=== PATIENT | male | born 1975 | race Caucasian/White ===

== ENCOUNTER → 2022-10-03 14:41 | Outpatient (BNVA) | payer OTHER, SELFPAY | PROVIDERS: Visit Provider Nurse Practitioner Family | DX: R20.2 Paresthesia of skin (principal); R25.2 Cramp and spasm; E03.9 Hypothyroidism, unspecified; G43.909 Migraine, unspecified, not intractable, without status migrainosus; M54.2 Cervicalgia; M54.9 Dorsalgia, unspecified | CPT/HCPCS: 99202 ==

== ENCOUNTER 2022-10-16 07:54 | Outpatient (REF) | payer OTHER, SELFPAY ==
--- NOTE | 2022-10-16 07:57 | EEG_ITS ---
Waking background activity consists of a well-defined moderate voltage, 10 to 11 hertz posterior alpha frequency, intermixed anteriorly with low-voltage fast frequencies. Drowsiness is characterized with diffuse theta slowing. Photic stimulation is without activation. Hyperventilation produces no change. No sleep stages are identified. IMPRESSION: This awake and drowsy EEG is within normal limits. MD MAU Flowers/TIMOTHY / [id number]
== END 2022-10-16 07:55 | disposition home or self-care (01) ==
LOC: HO.NEURO 07:54
PROVIDERS: PCP Internal Medicine; Visit Provider Nurse Practitioner Family
DX: G43.909 Migraine, unspecified, not intractable, without status migrainosus (principal)
CPT/HCPCS: 95816

== ENCOUNTER → 2022-12-10 11:20 | Outpatient (BNVA) | payer OTHER, SELFPAY | PROVIDERS: PCP Internal Medicine; Visit Provider Nurse Practitioner Family | DX: G43.909 Migraine, unspecified, not intractable, without status migrainosus (principal); M54.2 Cervicalgia; M54.9 Dorsalgia, unspecified | CPT/HCPCS: 99212 ==

== ENCOUNTER → 2023-01-14 08:57 | Outpatient (BNVA) | payer OTHER, SELFPAY | PROVIDERS: PCP Internal Medicine; Visit Provider Anesthesiology | DX: M47.26 Other spondylosis with radiculopathy, lumbar region (principal); G89.4 Chronic pain syndrome; M51.36 Other intervertebral disc degeneration, lumbar region | CPT/HCPCS: 99202 ==

== ENCOUNTER → 2023-03-06 15:30 | Outpatient (BNVA) | payer OTHER, SELFPAY | PROVIDERS: PCP Internal Medicine; Visit Provider Anesthesiology | DX: G89.4 Chronic pain syndrome (principal); M47.26 Other spondylosis with radiculopathy, lumbar region; M51.36 Other intervertebral disc degeneration, lumbar region; M46.1 Sacroiliitis, not elsewhere classified; M53.3 Sacrococcygeal disorders, not elsewhere classified | CPT/HCPCS: 99212 ==

== ENCOUNTER 2023-05-28 06:00 | Outpatient (REF) | payer OTHER, SELFPAY ==
--- NOTE | ~2023-05-28 | FL_ITS ---
EXAMINATION: XR FLUOROSCOPY WITH IMAGES CLINICAL INFORMATION: Sacrococcygeal disorders, not elsewhere classified. COMPARISON: None available. TECHNIQUE: Fluoroscopy Supervised By: Dr. Nura Eckert. Fluoroscopy Time: 0.1 minute. Cumulative Dose: 0.943 mGy. DAP: 0.0163 Gycm2. Images: 1. FINDINGS: Image demonstrates needle placement and contrast injection of the left sacroiliac joint FL/FL guidance in treatment room IMPRESSION: Fluoroscopy guidance for pain management procedure
== END 2023-05-28 06:01 | disposition home or self-care (01) ==
LOC: CF 06:00
PROVIDERS: Visit Provider Anesthesiology
DX: M53.3 Sacrococcygeal disorders, not elsewhere classified (principal); M47.816 Spondylosis without myelopathy or radiculopathy, lumbar region; M46.1 Sacroiliitis, not elsewhere classified
CPT/HCPCS: 27096

== ENCOUNTER 2023-05-28 08:22 | Outpatient (AMB) | payer OTHER, SELFPAY ==
[2023-05-28 08:28] VITALS: BP 128/60; PULSE 42; RESP 16; O2SAT 98; BMI 22.0
--- NOTE | 2023-05-28 08:28 | A.OFFVIS_ITS ---
Intake Vital Signs 05/28/23 08:28 05/28/23 09:38 Height 6 ft 1 in 6 ft 1 in Weight 167 lb 167 lb BMI 22.0 22.0 BP 128/60 104/60 Blood Pressure Location Lt brachial Lt brachial Position Sitting Sitting Respiration 16 16 Pulse 42 L 94 Pulse Source Pulse Oximeter Pulse Oximeter Pulse Oximetry (%) 98 98 Oxygen Delivery Method Room Air Room Air Comment pre-op post-op Intake Visit Reasons: L DX SIJ INJ/LOCAL Allergies cyclobenzaprine [From Flexeril] Allergy (Intermediate, Verified 05/28/23 08:28) Palpitations PFSH Surgical History History of carpal tunnel release Hx laparoscopic cholecystectomy Family History Mother Stroke Diabetes Past heart attack Father Stomach cancer COPD (chronic obstructive pulmonary disease) Diabetes Hypertension Sister Fibromyalgia Acute arthritis Bipolar 1 disorder Brother Bipolar 1 disorder GERD (gastroesophageal reflux disease) Kidney stones Sister Epilepsy Social History (Updated 10/03/22 @ 15:12 by Shazia Del Real [facility]) Alcohol intake: never Patient Tobacco Use Status: Never used Tobacco Physical Exam Vital Signs: Last Vital Signs Pulse 94 05/28/23 09:38 Resp 16 05/28/23 09:38 BP 104/60 05/28/23 09:38 Pulse Ox 98 05/28/23 09:38 Oxygen Delivery Method Room Air 05/28/23 09:38 BMI result Body Mass Index 22.0 Assessment & Plan Assessment & Plan (1) Spondylosis of lumbar spine: Code(s): M47.816 - Spondylosis without myelopathy or radiculopathy, lumbar region (2) Arthropathy of facet joint: Code(s): M47.819 - Spondylosis without myelopathy or radiculopathy, site unspecified (3) Disc degeneration, lumbar: Code(s): M51.36 - Other intervertebral disc degeneration, lumbar region (4) Radiculopathy, lumbar region: Code(s): M54.16 - Radiculopathy, lumbar region (5) Chronic pain syndrome: Code(s): G89.4 - Chronic pain syndrome (6) Sacroiliitis: Code(s): M46.1 - Sacroiliitis, not elsewhere classified (7) Sacroiliac joint dysfunction: Code(s): M53.3 - Sacrococcygeal disorders, not elsewhere classified Plan: Left diagnostic sacroiliac joint injection Informed consent was explained thoroughly to the patient. All questions about benefits and risks for the procedure were answered. Patient came to the operating room and was positioned prone on the operating table with the pillow under the pelvis. Time out was performed delineating name and of the patient, allergies and the nature of the procedure. The lower back and buttocks of the patient were prepped with ChloraPrep prepped and draped with sterile utility towels. C-arm was brought over the operating field and sq picture of patient's pelvis was demonstrated on the screen. For the left joint tilting C-arm contralateral to the site of the joint the most posterior portion of the joints was superimposed with anterior silhouette of the joint. Skin was injected in the projection of the joint slightly medial to the location of the joint with 25 gauge 1/2 inch needle using local lidocaine 2% .After that 22 gauge 3 and 1/2 inch needle was driven to the right joint in tunnel vision fashion. When needle entered the joint capsule injection of the contrast was performed demonstrating intra-articular and minimally periarticular spread of the contrast. After that 4 cc. of ropivacaine 0.5% was injected into the joint. Upon completion of the injections the needle was removed Sterile dressing was applied. Upon completion of the injection patient was taken outside of the operating room to the recovery room where recovered uneventfully. Plan Unfortunately MRI of the lumbar spine is not available for me. It was done in 2014. Attention was attracted today to sacroiliac joint pathology presumable on the left. We agreed that I will schedule him for left sacroiliac joint injection. If this procedure will alleviate his pain we will discuss ways and means of treating sacroiliitis. However if it and will not be helpful I believe I should send him to repeat MRI of the lumbar spine to diagnose his pain more p recisely. Next appointment for the injection of left sacroiliac joint and after that short-term follow-up. Orders: Orders FL guidance in treatment room Today M46.1 - Sacroiliitis, not elsewhere classified, M53.3 - Sacrococcygeal disorders, not elsewhere classified Coding Level of Care Code Procedure Only Diagnoses Spondylosis of lumbar spine M47.816 Arthropathy of facet joint M47.819 Disc degeneration, lumbar M51.36 Radiculopathy, lumbar region M54.16 Chronic pain syndrome G89.4 Sacroiliitis M46.1 Sacroiliac joint dysfunction M53.3
[2023-05-28 09:38] VITALS: BP 104/60; PULSE 94; RESP 16; O2SAT 98; BMI 22.0
== END 2023-05-28 09:35 | disposition home or self-care (01) ==
LOC: HO.PMCPRC 08:22
PROVIDERS: PCP Internal Medicine; Visit Provider Anesthesiology
DX: M46.1 Sacroiliitis, not elsewhere classified (principal); M53.3 Sacrococcygeal disorders, not elsewhere classified
CPT/HCPCS: 27096

== ENCOUNTER 2023-05-30 09:42 | Outpatient (AMB) | payer OTHER, SELFPAY ==
--- NOTE | 2023-05-30 09:44 | MHC.OFFVIS ---
Intake Vital Signs 05/30/23 09:50 Height 6 ft 1 in Weight 164 lb 2 oz BMI 21.7 BP 126/86 Blood Pressure Location Lt brachial Position Standing Respiration 16 Pulse 58 Pulse Source Pulse Oximeter Pulse Oximetry (%) 98 Oxygen Delivery Method Room Air Intake Visit Reasons: L DX SIJ INJ 05/28/23 Intake Note: patient comes in for post op. Allergies cyclobenzaprine [From Flexeril] Allergy (Intermediate, Verified 05/30/23 09:51) Palpitations HPI HPI Comments History of Present Illness Details Juan is very pleasant 47 years old gentleman who is back in my office for the follow-up. He went for left diagnostic sacroiliac joint injection and he reported no pain improvement after the procedure. He actually reported pain aggravation after the procedure. He stated that now he feels pain going down both left and right lower extremities. At the same time he reported that he feels bilateral lower extremities getting weaker. He reports that he is unable to flex his hip when he sits on a chair he feels his left hip absolutely heavy. He admits that straight leg rising and lassegue signs are positive on the left. He also admits numbness in the projection of the lateral border of the left foot. All of this is suspicious from some radiculopathy on the left and possible involvement on the right. He had the MRI long time ago. I will schedule him for MRI of the lumbar spine. Unfortunately he does not remember where the MRI was done but he will be looking for the place that he would have had it and tried to obtain the disc for comparison of the prior MRI with new MRI in [facility]. injections he had in 2016 with [facility]. Those were transforaminal epidural steroid injections. They were basically similar injections with 1 injection addressing L4 and L5 nerve roots and the other injection addressing S1 nerve root he reported that S1 nerve root injection helped better than L4 and L5. However attention was attracted today to the fact that the patient has significant symptoms of sacroiliitis on the left. He has tenderness on palpation in the projection of the left sacroiliac joint. He has positive Michele test and positive Stinchfield test. He also has positive pelvic destruction test. I offered the patient to have diagnostic left sacroiliac joint injection. If this procedure will result in good pain relief I will offer him some treatment for the sacroiliitis on the left. If it will not be so I will send him for MRI of the lumbar spine, last MRI he had 7 years ago. Prior: Complains on the neck and back pain, however he insist on back pain the bothering him much more than the neck pain in would like to discuss back pain injection he received many years ago with [facility].? He reports and a in 2013 he had industrial accident during which he fell from the ladder.? He fractured his ribs and also had cervical spine fracture.? He also states that he received injury of the lumbar spine with some disc rupture during this fall.? He reports that the injection he received in [facility] was very helpful for pain control and he wants to repeat this injection here.? He reports his pain 04/15 today.he cannot sleep normally cannot do activities of daily living he can take care of himself but he cannot function normally.? He is working full-time.? [facility] Surgical History History of carpal tunnel release Hx laparoscopic cholecystectomy Family History Mother Stroke Diabetes Past heart attack Father Stomach cancer COPD (chronic obstructive pulmonary disease) Diabetes Hypertension Sister Fibromyalgia Acute arthritis Bipolar 1 disorder Brother Bipolar 1 disorder GERD (gastroesophageal reflux disease) Kidney stones Sister Epilepsy Social History (Updated 10/03/22 @ 15:12 by Shazia Del Real [facility]) Alcohol intake: never Patient Tobacco Use Status: Never used Tobacco Review of Systems Const All systems reviewed & are unremarkable except as noted in HPI and below ENT Reports Normal hearing present Neuro Reports Normal hearing present, Denies Abnormal speech present and Denies Sensory deficit (Neuro) Physical Exam Const General: no acute distress Nutritional Appearance: thin and underweight Orientation/consciousness: patient oriented x3 Eyes General: appearance normal, both eyes and all related structures Pupils: Equal, round and reactive pupils present EOM: EOMs intact bilaterally Neck Neck: Yes full ROM Chest Chest palpation & inspection: normal inspection of the chest Resp Effort & Inspection: normal respiratory effort, able to speak in complete sentences, normal respiratory pattern, no audible wheezes and no cough Cardio Jugular venous distension: no JVD GI Inspection: Yes normal to inspection Back/Spine/Pelvis Other: He is able to stand on bilateral tiptoes and bilateral heels with no difficulty. He was able to lift 1st toe on both feet in separation of the rest of the toes without difficulty. However attempt to flex his hip or extend his knee on the left results in significant weakness. The weakness is more on the left compared to the right. Now he admits numbness in the lateral surface of the left foot. SLR is positive on the left and equivocal on the right. Lassegue test is also positive on the left. Michele test is positive on the left Tenderness on palpation in paraspinal spinal region in the lumbar spine. Severe tenderness on palpation in projection of the left sacroiliac joints. Flexing forward and flexing backwards does aggravate his pain however flexing backwards seem to aggravate his pain more than flexing forward. He is wearing a elastic abdominal belt. He denies pelvic organ dysfunction. Neuro General: patient oriented x3 and gait normal Cranial nerves: Yes CN's II-XII intact bilaterally, Yes Equal, round and reactive pupils present, Yes Normal hearing present and Yes Ability to bilaterally elevate shoulders present Speech: No Abnormal speech present Gait exam (Neuro): Normal gait present Motor exam (neuro): 5/5 motor strength present throughout Sensory Exam: No Sensory deficit (Neuro) Extrem General: No pedal edema Psych Speech and movement: Normal speech and movement present Affect: normal affect Attitude: cooperative Thought process: Normal thought process present Thought content: Normal thought content present Insight: Good insight present (Psych) Judgement: Good judgement present (Psych) Assessment & Plan Assessment & Plan (1) Spondylosis of lumbar spine: Code(s): M47.816 - Spondylosis without myelopathy or radiculopathy, lumbar region (2) Arthropathy of facet joint: Code(s): M47.819 - Spondylosis without myelopathy or radiculopathy, site unspecified (3) Disc degeneration, lumbar: Code(s): M51.36 - Other intervertebral disc degeneration, lumbar region (4) Radiculopathy, lumbar region: Code(s): M54.16 - Radiculopathy, lumbar region (5) Chronic pain syndrome: Code(s): G89.4 - Chronic pain syndrome (6) Sacroiliitis: Code(s): M46.1 - Sacroiliitis, not elsewhere classified (7) Sacroiliac joint dysfunction: Code(s): M53.3 - Sacrococcygeal disorders, not elsewhere classified Plan Sacroiliac joint injection resulted only in pain aggravation. Now he complains on pain in bilateral lower extremities radiating from the lumbar spine and he complains to me on weakness in the left lower extremity and numbness on the lateral side of the left foot. Unfortunately MRI of the lumbar spine is not available for me. It was done in 2014. Attention was attracted today to symptoms of the radiculopathy of the lumbar spine. I will send him to repeat MRI of the lumbar spine. Orders: Orders MR lumbar spine wo con Today G89.4 - Chronic pain syndrome, M47.816 - Spondylosis without myelopathy or radiculopathy, lumbar region, M47.819 - Spondylosis without myelopathy or radiculopathy, site unspecified, M51.36 - Other intervertebral disc degeneration, lumbar region, M54.16 - Radiculopathy, lumbar region Coding Level of Care Code Est Pt Level 4 (45766) Diagnoses Spondylosis of lumbar spine M47.816 Arthropathy of facet joint M47.819 Disc degeneration, lumbar M51.36 Radiculopathy, lumbar region M54.16 Chronic pain syndrome G89.4 Sacroiliitis M46.1 Sacroiliac joint dysfunction M53.3
[2023-05-30 09:50] VITALS: BP 126/86; PULSE 58; RESP 16; O2SAT 98; BMI 21.7
== END 2023-05-30 10:04 | disposition home or self-care (01) ==
PROVIDERS: PCP Internal Medicine; Visit Provider Anesthesiology
DX: M47.816 Spondylosis without myelopathy or radiculopathy, lumbar region (principal); M47.819 Spondylosis without myelopathy or radiculopathy, site unspecified; M51.36 Other intervertebral disc degeneration, lumbar region; M54.16 Radiculopathy, lumbar region; G89.4 Chronic pain syndrome; M46.1 Sacroiliitis, not elsewhere classified; M53.3 Sacrococcygeal disorders, not elsewhere classified
CPT/HCPCS: 99214

== ENCOUNTER → 2023-05-30 09:42 | Outpatient (BNVA) | payer OTHER, SELFPAY | PROVIDERS: PCP Internal Medicine; Visit Provider Anesthesiology | DX: G89.4 Chronic pain syndrome (principal); M47.26 Other spondylosis with radiculopathy, lumbar region; M51.36 Other intervertebral disc degeneration, lumbar region; M46.1 Sacroiliitis, not elsewhere classified; M53.3 Sacrococcygeal disorders, not elsewhere classified | CPT/HCPCS: 99212 ==

== ENCOUNTER 2023-07-09 19:33 | Outpatient (REF) | payer OTHER, SELFPAY ==
--- NOTE | ~2023-07-09 | MR_ITS ---
EXAMINATION: MR LUMBAR SPINE WITHOUT CONTRAST CLINICAL INFORMATION: Chronic pain syndrome COMPARISON: Outside MRI of the lumbar spine 01/13/2016 TECHNIQUE: MRI of the lumbar spine was obtained using routine sequences without contrast. FINDINGS: Lumbar straightening. No significant spondylolisthesis. No suspicious marrow signal or focal osseous lesion. No significant marrow edema. The vertebral body heights are maintained. Disc desiccation and height loss at T11-T12 and L5-S1 and mild desiccation at L4-L5. The conus medullaris terminates at the level of L1-L2. The distal spinal cord is normal in appearance. The cauda equina nerve roots appear normal. No significant abnormalities of the paraspinal musculature. Limited evaluation of the intra-abdominal structures without significant abnormalities. The abdominal aorta is of normal contour and caliber. SPINAL LEVELS: L1-L2: No significant spinal canal or neuroforaminal narrowing. L2-L3: No significant spinal canal or neuroforaminal narrowing. L3-L4: No significant spinal canal or neuroforaminal narrowing. L4-L5: Shallow left eccentric disc bulge with left posterior annular fissure, mild facet arthropathy, ligamentum flavum thickening. No significant central spinal canal stenosis. Mild subarticular zone narrowing and mild left neural foraminal narrowing L5-S1: Increased size of a large central disc protrusion which results in worsening left greater than right subarticular zone narrowing and likely mass effect on the traversing left S1 nerve root. Mild facet arthropathy with small joint effusions and ligamentum flavum thickening. New mild central spinal canal stenosis. Stable mild bilateral neural foraminal narrowing. MR/MR lumbar spine wo con IMPRESSION: 1. At L5-S1, increased size of a large central disc protrusion which results in worsening left greater than right subarticular zone narrowing and likely mass effect on the traversing left S1 nerve root. There is also new mild central spinal canal stenosis at this level. 2. At L4-L5, there is mild subarticular zone narrowing and mild left neural foraminal narrowing.
== END 2023-07-09 19:34 | disposition home or self-care (01) ==
LOC: HO.MRI 19:33
PROVIDERS: PCP Internal Medicine; Visit Provider Anesthesiology
DX: M54.16 Radiculopathy, lumbar region (principal); M51.36 Other intervertebral disc degeneration, lumbar region; M47.816 Spondylosis without myelopathy or radiculopathy, lumbar region; G89.4 Chronic pain syndrome
CPT/HCPCS: 72148; 72197

== ENCOUNTER 2023-07-30 06:07 | Outpatient (REF) | payer OTHER, SELFPAY ==
--- NOTE | ~2023-07-30 | FL_ITS ---
EXAMINATION: XR FLUOROSCOPY WITH IMAGES CLINICAL INFORMATION: Radiculopathy, lumbar region. Lumbar injection. COMPARISON: None available. TECHNIQUE: Fluoroscopy Supervised By: Dr. Nura Eckert. Fluoroscopy Time: 0.5 minutes. Cumulative Dose: 5.45 mGy. DAP: 0.0880 Gycm2. Images: 2. FINDINGS: Images demonstrate needle placement and contrast injection adjacent to the bilateral lateral L5 vertebrae FL/FL guidance in treatment room IMPRESSION: Fluoroscopy guidance for pain management procedure
== END 2023-07-30 06:08 | disposition home or self-care (01) ==
LOC: CF 06:07
PROVIDERS: Visit Provider Anesthesiology
DX: M47.26 Other spondylosis with radiculopathy, lumbar region (principal); M51.36 Other intervertebral disc degeneration, lumbar region; M46.1 Sacroiliitis, not elsewhere classified; M53.3 Sacrococcygeal disorders, not elsewhere classified; G89.4 Chronic pain syndrome
CPT/HCPCS: 64483; J3301; Q9967

== ENCOUNTER 2023-07-30 09:16 | Outpatient (AMB) | payer OTHER, SELFPAY ==
[2023-07-30 09:20] VITALS: BP 136/86; PULSE 70; RESP 16; O2SAT 98; BMI 21.6
--- NOTE | 2023-07-30 09:20 | A.OFFVIS_ITS ---
Intake Vital Signs 07/30/23 09:20 07/30/23 11:04 Height 6 ft 1 in 6 ft 1 in Weight 164 lb 164 lb BMI 21.6 21.6 BP 136/86 138/84 Blood Pressure Location Lt brachial Lt brachial Position Right Lateral Sitting Respiration 16 18 Pulse 70 78 Pulse Source Pulse Oximeter Pulse Oximeter Pulse Oximetry (%) 98 96 Oxygen Delivery Method Room Air Room Air Comment Pre-Op Post-Op Intake Visit Reasons: BILATERAL L5, S1 TFESI Allergies cyclobenzaprine [From Flexeril] Allergy (Intermediate, Verified 05/30/23 09:51) Palpitations PFSH Surgical History History of carpal tunnel release Hx laparoscopic cholecystectomy Family History Mother Stroke Diabetes Past heart attack Father Stomach cancer COPD (chronic obstructive pulmonary disease) Diabetes Hypertension Sister Fibromyalgia Acute arthritis Bipolar 1 disorder Brother Bipolar 1 disorder GERD (gastroesophageal reflux disease) Kidney stones Sister Epilepsy Social History (Updated 10/03/22 @ 15:12 by Shazia Del Real [facility]) Alcohol intake: never Patient Tobacco Use Status: Never used Tobacco Physical Exam Vital Signs: Last Vital Signs Pulse 78 07/30/23 11:04 Resp 18 07/30/23 11:04 BP 138/84 07/30/23 11:04 Pulse Ox 96 07/30/23 11:04 Oxygen Delivery Method Room Air 07/30/23 11:04 BMI result Body Mass Index 21.6 Assessment & Plan Assessment & Plan (1) Spondylosis of lumbar spine: Code(s): M47.816 - Spondylosis without myelopathy or radiculopathy, lumbar region (2) Arthropathy of facet joint: Code(s): M47.819 - Spondylosis without myelopathy or radiculopathy, site unspecified (3) Disc degeneration, lumbar: Code(s): M51.36 - Other intervertebral disc degeneration, lumbar region (4) Radiculopathy, lumbar region: Code(s): M54.16 - Radiculopathy, lumbar region Plan: Transforaminal epidural steroid injection L5-S1 bilateral . THE PATIENT CAME TO THE OPERATING ROOM AFTER OBTAINING INFORMED CONSENT. THE RISKS OF THE PROCEDURE WERE DELINEATED THE RISK OF BLEEDING INFECTION PERIPHERAL NERVE DAMAGE EPIDURAL HEMATOMA EPIDURAL ABSCESS AND OTHER UNSPECIFIED RISKS. THE PATIENT WAS POSITIONED PRONE ON THE OPERATING TABLE . TIME-OUT WAS OBTAINED DELINEATING CORRECT SIDE AND SITE OF THE PROCEDURE, PATIENT NAME AND DATE OF , NEED OF THE ANTIBIOTIC, RISK OF FIRE. The PATIENT PARTICIPATED IN THE TIME OUT PROCEDURE. LUMBAR AREA OF THE PATIENT WAS PREPPED WITH CHLORAPREP AND DRAPED WITH STERILE DRAPES, C-ARM WAS BROUGHT OVER THE OPERATING FIELD AND SQ PICTURE OF L5 VERTEBRA WAS DELINEATED ON THE SCREEN. C-ARM WAS TILTED 20? CEPHALAD AND 25 DEGREES TO THE RIGHT TO DEMONSTRATE THE MOST PROMINENT IMAGE OF THE SAP on THE RIGHT. THE LATERAL BORDER OF THE SAP PROJECTION TO THE SKIN WAS CHOSEN A STARTING POINT OF THE INJECTION. 22 GAUGE 5 IN SPINAL NEEDLE WAS INSERTED THROUGH THE SKIN AND STARTED TO ADVANCE TO THE FORAMINA IN ANTERIOR POSTERIOR, OBLIQUE AND LATERAL VIEWS IN TUNNEL VISION FASHION. WHEN ON LATERAL VIEW THE NEEDLE ENTERED THE MOST POSTERIOR AND INFERIOR PORTION OF THE FORAMINA INJECTION OF THE CONTRAST PERFORMED DELINEATING ANTERIOR EPIDURAL SPREAD OF THE CONTRAST. AFTER THAT TREATMENT SOLUTION CONTAINING 3 ML OF PRESERVATIVE-FREE LIDOCAINE 1% MIXED WITH KENALOG 40 MG WAS INJECTED INTO THE NEEDLE. UPON COMPLETION OF THE INJECTION THE NEEDLE WAS REMOVED AND STERILE DRESSING WAS APPLIED. THERE INJECTION WAS REPEATED AT THE LEVELL5-S1 ON THE LEFT IN THE SAME VERY FASHION ABOVE. PATIENT TOLERATED PROCEDURE WELL STAKEN OUTSIDE OF THE OPERATING ROOM TO PACU WHERE HE RECOVERED UNEVENTFULLY. HE WENT HOME WITHOUT IMMEDIATE COMPLICATIONS. (5) Chronic pain syndrome: Code(s): G89.4 - Chronic pain syndrome (6) Sacroiliitis: Code(s): M46.1 - Sacroiliitis, not elsewhere classified (7) Sacroiliac joint dysfunction: Code(s): M53.3 - Sacrococcygeal disorders, not elsewhere classified Orders: Orders FL guidance in treatment room 07/30/23 M54.16 - Radiculopathy, lumbar region Coding Level of Care Code Procedure Only Diagnoses Spondylosis of lumbar spine M47.816 Arthropathy of facet joint M47.819 Disc degeneration, lumbar M51.36 Radiculopathy, lumbar region M54.16 Chronic pain syndrome G89.4 Sacroiliitis M46.1 Sacroiliac joint dysfunction M53.3
[2023-07-30 11:04] VITALS: BP 138/84; PULSE 78; RESP 18; O2SAT 96; BMI 21.6
== END 2023-07-30 11:26 | disposition home or self-care (01) ==
LOC: HO.PMCPRC 09:16
PROVIDERS: PCP Internal Medicine; Visit Provider Anesthesiology
DX: M47.26 Other spondylosis with radiculopathy, lumbar region (principal); M51.36 Other intervertebral disc degeneration, lumbar region; G89.4 Chronic pain syndrome; M46.1 Sacroiliitis, not elsewhere classified; M53.3 Sacrococcygeal disorders, not elsewhere classified
CPT/HCPCS: 64483

== ENCOUNTER 2024-01-15 12:52 | Outpatient (AMB) | payer OTHER, SELFPAY ==
--- NOTE | 2024-01-15 12:59 | MHC.OFFVIS ---
Intake Intake Visit Reasons: lumbar radiculopathy Intake Note: MRI done [facility] 07/09/23 Chart Writer Required: No Allergies cyclobenzaprine [From Flexeril] Allergy (Intermediate, Verified 05/30/23 09:51) Palpitations PFSH Surgical History History of carpal tunnel release Hx laparoscopic cholecystectomy Family History Mother Stroke Diabetes Past heart attack Father Stomach cancer COPD (chronic obstructive pulmonary disease) Diabetes Hypertension Sister Fibromyalgia Acute arthritis Bipolar 1 disorder Brother Bipolar 1 disorder GERD (gastroesophageal reflux disease) Kidney stones Sister Epilepsy Social History (Updated 10/03/22 @ 15:12 by Shazia Del Real [facility]) Alcohol intake: never Patient Tobacco Use Status: Never used Tobacco Assessment & Plan Assessment & Plan (1) Radiculopathy, lumbar region: Code(s): M54.16 - Radiculopathy, lumbar region Plan Dear Dr. Eckert, Thank you for referring Juan to our office today. He is a pleasant 48-year-old male comes in today with a chief complaint of low back pain with severe shooting pain down his left lower extremity. He reports associated symptoms of right-sided thigh numbness and burning. When describing his radiation of pain he runs his hands over the anterior and posterior aspects of his left thigh, over his posterior gastrocnemius, and down to the bottom of his foot on the left. He states this pain has been worsening over the course of the last few weeks, but originated some time over the course of the last year. He is unable to identify an exact inciting incident, however states he does a lot of ?heavy lifting? while at work. Of note, he has a past medical history of ?multiple neck fractures and rib fractures? after falling off a ladder while working for [employer] in 2017. He has tried cortisone injections with our colleagues in pain management, however feels they are not resolving the issue. He is currently taking ibuprofen and lidocaine patches to help mitigate his pain. He has never tried physical therapy. PMH: Gallbladder removal 2004. Nephrolithiasis. Social hx: Patient does not smoke, reports no substance use. Medications: Lidocaine patches, ibuprofen, riboflavin, omeprazole, magnesium, aspirin. Allergies: Flexeril. Physical exam: The patient has 4/5 strength with knee extension dorsiflexion and plantar flexion on the left. The rest of his strength is 5/5 intact. His reflexes are absent in his bilateral patella, 1+ in his bilateral Achilles, and 2+ elsewhere. His sensation is somewhat diminished over his right anterior thigh. The rest of his sensation is grossly intact. He does ambulate with an antalgic gait favoring his right. (-) Roberto's, (-) clonus, (+) bilateral straight leg raise worse on the left. Imaging review: MRI of the lumbar spine completed here at [facility] shows a moderate-sized disc bulge at L5-S1 causing moderate central canal and right-sided foraminal stenosis, alongside severe left-sided foraminal stenosis. Impression: Juan is a pleasant 48-year-old male who comes in today with a chief complaint of low back pain with radiation into his left lower extremity. He reports it has been worsening over the course of the last few weeks but the initial injury allegedly happened sometime within the last year. Along with the worsening pain in his left leg has come right-sided burning and numbness in the anterior thigh. His symptoms are classic for an acute disc herniation which has for some reason either become exacerbated or worsened. Unfortunately, Juan states that he has not willing to consider surgery right now as he has a previous experience having his gallbladder removed in 2004 which was very traumatizing for him. He would like to continue pursuing conservative measures. He has not yet tried physical therapy, therefore I will send him for a round of physical therapy in the hopes this will help mitigate his symptoms. He was encouraged to call the office and schedule follow-up appointment if he feels as though his symptoms worsens or he reconsiders a surgical intervention for this issue. Thank you for allowing us to care for your patient. The total time spent with this visit with this patient was 45 minutes reviewing history, physical exam, MRI imaging review, and implementation of treatment plan or further diagnostic testing Navi Benito MD,PhD [facility] Orders: Orders PT Evaluation and Treatment Today M54.16 - Radiculopathy, lumbar region Coding Level of Care Code New Pt Level 4 (14655) Diagnoses Radiculopathy, lumbar region M54.16
== END 2024-01-15 13:26 | disposition home or self-care (01) ==
PROVIDERS: PCP Internal Medicine; Referring Provider Anesthesiology; Visit Provider Physician Assistant
DX: M54.16 Radiculopathy, lumbar region (principal)
CPT/HCPCS: 99204

== ENCOUNTER → 2024-01-15 12:52 | Outpatient (BNVA) | payer OTHER, SELFPAY | PROVIDERS: PCP Internal Medicine; Visit Provider Physician Assistant | DX: M54.16 Radiculopathy, lumbar region (principal) | CPT/HCPCS: 99202 ==

== ENCOUNTER 2024-01-29 13:46 | Outpatient (AMB) | payer OTHER, SELFPAY ==
--- NOTE | 2024-01-29 14:01 | A.OFFVIS_ITS ---
Vital Signs 01/29/24 14:06 Height 6 ft 1 in Weight 157 lb 2 oz BMI 20.7 BP 126/86 Blood Pressure Location Lt brachial Position Sitting Respiration 16 Pulse 67 Pulse Source Pulse Oximeter Pulse Oximetry (%) 97 Oxygen Delivery Method Room Air Intake Visit Reasons: INJECTION DISCUSSION Intake Note: Patient comes in to discuss injection options. Reports pain 07/16. Allergies cyclobenzaprine [From Flexeril] Allergy (Intermediate, Verified 01/29/24 14:06) Palpitations HPI Comments Details: Juan is very pleasant 48 years old gentleman who is in my office to 6 months of absence. He is suffering from degenerative disc disease with significant disc protrusion at L5-S1 level. The disc compresses bilaterally both of his S1 nerve roots. His pains complain is mostly on the left however he has severe problems on the right as well. [facility] and he was offered minimally invasive surgery however he has very traumatic experience after cholecystectomy and he refused to go for the surgery. He was aware under anesthesia during cholecystectomy. I offered him treatment of his condition with bilateral transforaminal epidural steroid injection L5-S1 like I did in July of 2023. He agreed to go for the procedure. I also told him that it will be a good idea to go for physical therapy before and after the injection and also continue home exercise program at least 3 times a day for at least 15-20 minutes at a time after he completes his course of physical therapy. There is a small possibility that this protrusion will get smaller and his pain will get better. [facility] Surgical History History of carpal tunnel release Hx laparoscopic cholecystectomy Family History Mother Stroke Diabetes Past heart attack Father Stomach cancer COPD (chronic obstructive pulmonary disease) Diabetes Hypertension Sister Fibromyalgia Acute arthritis Bipolar 1 disorder Brother Bipolar 1 disorder GERD (gastroesophageal reflux disease) Kidney stones Sister Epilepsy Social History (Updated 10/03/22 @ 15:12 by Shazia Del Real [facility]) Alcohol intake: never Patient Tobacco Use Status: Never used Tobacco Review of Systems Const All systems reviewed & are unremarkable except as noted in HPI and below ENT Reports Normal hearing present Neuro Reports Normal hearing present, Denies Abnormal speech present and Denies Sensory deficit (Neuro) Physical Exam Const General: no acute distress Nutritional Appearance: thin and underweight Orientation/consciousness: patient oriented x3 Eyes General: appearance normal, both eyes and all related structures Pupils: Equal, round and reactive pupils present EOM: EOMs intact bilaterally Neck Neck: Yes full ROM Chest Chest palpation & inspection: normal inspection of the chest Resp Effort & Inspection: normal respiratory effort, able to speak in complete sentences, normal respiratory pattern, no audible wheezes and no cough Cardio Jugular venous distension: no JVD GI Inspection: Yes normal to inspection Back/Spine/Pelvis Other: He is able to stand on bilateral tiptoes and bilateral heels with no difficulty. He was able to lift 1st toe on both feet in separation of the rest of the toes without difficulty. However attempt to flex his hip or extend his knee on the left results in significant weakness. The weakness is more on the left compared to the right. Now he admits numbness in the lateral surface of the left foot. SLR is positive on the left and equivocal on the right. Lassegue test is also positive on the left. Michele test is positive on the left Tenderness on palpation in paraspinal spinal region in the lumbar spine. Severe tenderness on palpation in projection of the left sacroiliac joints. Flexing forward and flexing backwards does aggravate his pain however flexing backwards seem to aggravate his pain more than flexing forward. He is wearing a elastic abdominal belt. He denies pelvic organ dysfunction. Neuro General: patient oriented x3 and gait normal Cranial nerves: Yes CN's II-XII intact bilaterally, Yes Equal, round and reactive pupils present, Yes Normal hearing present and Yes Ability to bilaterally elevate shoulders present Speech: No Abnormal speech present Gait exam (Neuro): Normal gait present Motor exam (neuro): 5/5 motor strength present throughout Sensory Exam: No Sensory deficit (Neuro) Extrem General: No pedal edema Psych Speech and movement: Normal speech and movement present Affect: normal affect Attitude: cooperative Thought process: Normal thought process present Thought content: Normal thought content present Insight: Good insight present (Psych) Judgement: Good judgement present (Psych) Assessment & Plan Assessment & Plan (1) Spondylosis of lumbar spine: Code(s): M47.816 - Spondylosis without myelopathy or radiculopathy, lumbar region Category: Medical (2) Arthropathy of facet joint: Code(s): M47.819 - Spondylosis without myelopathy or radiculopathy, site unspecified Category: Medical (3) Disc degeneration, lumbar: Code(s): M51.36 - Other intervertebral disc degeneration, lumbar region Category: Medical (4) Radiculopathy, lumbar region: Code(s): M54.16 - Radiculopathy, lumbar region Category: Medical (5) Chronic pain syndrome: Code(s): G89.4 - Chronic pain syndrome Category: Medical Plan Sacroiliac joint injection resulted only in pain aggravation. Good results of transforaminal L5-S1 epidural steroid injection. Bilateral. I will schedule him for the procedure. He was offered minimally invasive surgery with Dr. Benito however he refused. He had traumatic experience after cholecystectomy he was found aware under anesthesia. Physical therapy will be scheduled for him as well. See discussion as above. Orders: Orders PT Evaluation and Treatment Today M47.816 - Spondylosis without myelopathy or radiculopathy, lumbar region, M51.36 - Other intervertebral disc degeneration, lumbar region, M54.16 - Radiculopathy, lumbar region Patient Instructions: I here by testify that I spent 30 minutes in conversation with this patient as well as evaluating his prior images and records, planning his care and organizing this note. Coding Level of Care Code Est Pt Level 4 (46816) Diagnoses Spondylosis of lumbar spine M47.816 Arthropathy of facet joint M47.819 Disc degeneration, lumbar M51.36 Radiculopathy, lumbar region M54.16 Chronic pain syndrome G89.4
[2024-01-29 14:06] VITALS: BP 126/86; PULSE 67; RESP 16; O2SAT 97; BMI 20.7
== END 2024-01-29 14:15 | disposition home or self-care (01) ==
PROVIDERS: PCP Internal Medicine; Visit Provider Anesthesiology
DX: M47.816 Spondylosis without myelopathy or radiculopathy, lumbar region (principal); M47.819 Spondylosis without myelopathy or radiculopathy, site unspecified; M51.36 Other intervertebral disc degeneration, lumbar region; M54.16 Radiculopathy, lumbar region; G89.4 Chronic pain syndrome
CPT/HCPCS: 99214

== ENCOUNTER → 2024-01-29 13:46 | Outpatient (BNVA) | payer OTHER, SELFPAY | PROVIDERS: PCP Internal Medicine; Visit Provider Anesthesiology | DX: M47.816 Spondylosis without myelopathy or radiculopathy, lumbar region (principal); M47.819 Spondylosis without myelopathy or radiculopathy, site unspecified; M51.36 Other intervertebral disc degeneration, lumbar region; M54.16 Radiculopathy, lumbar region; G89.4 Chronic pain syndrome | CPT/HCPCS: 99212 ==

== ENCOUNTER 2024-02-19 13:43 | Outpatient (RCR) | payer OTHER, SELFPAY ==
--- NOTE | 2024-02-24 09:50 | MHC.PT.EP ---
[facility] [place] Office [place] Office [place] Office [address] Elizabeth Bourgeois [address] [phone] F: [phone] F: [phone] F: [phone] F: [phone] Physical Therapy Plan of Care Date of Evaluation: 02/19/24 Date of Surgery: n/a Diagnosis: Radiculopathy, lumbar region Other intervertebral disc degeneration, lumbar region Spondylosis without myelopathy or radiculopathy, lumbar region Assessment: Pt is a pleasant and motivated 48yo M who presents to PT with chronic low back pain radiating into LE's since 2013. He presents to PT with current impairments in pain, decreased lumbar ROM, posterior chain tightness, decreased core stabilization, decreased strength, decreased balance/proprioception, and impaired gait. He is limited functionally by prolonged sitting, bending, prolonged standing, walking, and sleeping. He is a good candidate for skilled PT in order to address current impairments to maximize function and management of symptoms. He is recommended to be seen 2x/week for 4 weeks and will be reassessed at that time Frequency and Duration: The patient will be seen 2x/week for 4 weeks Short Term Goals: Pt will be I with HEP to promote self management of symptoms Pt will have centralization of symptoms [employer] Goals: Pt will improve lumbar ROM by 25% all planes to facilitate return to functional activities Pt will demonstrate ability to squat and pickle cutter object from the floor with proper mechanics and minimal to no compensation of low back Pt will tolerate ambulation > 20 min with pain < 4/10 on multidirectional path Treatment Plan: Modalities to reduce pain, spasms and effusion. Manual therapy to restore motion and function. Therapeutic exercise to improve strength and flexibility. Neuromuscular re-education for posture and balance. Therapeutic activities to return to functional activities of daily living. Electronically signed by: Deepthi Solorio, PT, DPT Please sign and return to therapist. Thank you for your referral.
--- NOTE | 2024-03-17 14:07 | MHC.PT.DC ---
[facility] [place] Office [place] Office [place] Office [address] Elizabeth Bourgeois [address] [phone] F: [phone] F: [phone] F: [phone] F: [phone] Physical Therapy Discharge Report Diagnosis: Radiculopathy, lumbar region Other intervertebral disc degeneration, lumbar region Spondylosis without myelopathy or radiculopathy, lumbar region Date of Surgery: n/a Date of Evaluation: 02/19/24 Date of Discharge: 03/17/24 Treatments to Date: 1 Cancellations to Date: 4 No Shows to Date: 4 Discharge Status: Visit Non-compliance Discharge Summary: Pt attended initial PT evaluation. He has had multiple no shows and cancellations since SOC. He is being D/C from skilled PT per [facility] attendance policy and visit non-compliance. Pt current level of function unknown at this time Electronically signed by: Deepthi Solorio, PT, DPT Please sign and return to therapist. Thank you for your referral.
== END 2024-03-17 14:07 | disposition home or self-care (01) ==
LOC: HO.PT 13:43
PROVIDERS: PCP Physician Assistant; Visit Provider Anesthesiology
DX: M54.16 Radiculopathy, lumbar region (principal); M51.36 Other intervertebral disc degeneration, lumbar region; M47.816 Spondylosis without myelopathy or radiculopathy, lumbar region
CPT/HCPCS: 97162

== ENCOUNTER 2024-03-24 06:07 | Outpatient (REF) | payer OTHER, SELFPAY | END 2024-03-24 06:08 | disposition home or self-care (01) | LOC: CF 06:07 | PROVIDERS: Visit Provider Anesthesiology | DX: M47.816 Spondylosis without myelopathy or radiculopathy, lumbar region (principal); M47.819 Spondylosis without myelopathy or radiculopathy, site unspecified; M51.36 Other intervertebral disc degeneration, lumbar region; M54.16 Radiculopathy, lumbar region; G89.4 Chronic pain syndrome; R11.0 Nausea; Z53.09 Procedure and treatment not carried out because of other contraindication | CPT/HCPCS: 99212; J3301; Q9967 ==

== ENCOUNTER 2024-03-24 09:39 | Outpatient (AMB) | payer OTHER, SELFPAY ==
--- NOTE | 2024-03-24 09:48 | MHC.OFFVIS ---
Vital Signs 03/24/24 10:05 03/24/24 10:24 Height 6 ft 1 in Weight 157 lb 2 oz BMI 20.7 BP 98/68 102/68 Blood Pressure Location Lt brachial Lt brachial Position Sitting Sitting Respiration 16 16 Pulse 63 52 Pulse Source Pulse Oximeter Pulse Oximeter Pulse Oximetry (%) 96 98 Oxygen Delivery Method Room Air Room Air Comment pre-op post-op Intake Visit Reasons: BILATERAL L5, S1 TFESI Allergies cyclobenzaprine [From Flexeril] Allergy (Intermediate, Verified 03/24/24 10:07) Palpitations PFSH Surgical History History of carpal tunnel release Hx laparoscopic cholecystectomy Family History Mother Stroke Diabetes Past heart attack Father Stomach cancer COPD (chronic obstructive pulmonary disease) Diabetes Hypertension Sister Fibromyalgia Acute arthritis Bipolar 1 disorder Brother Bipolar 1 disorder GERD (gastroesophageal reflux disease) Kidney stones Sister Epilepsy Social History (Updated 10/03/22 @ 15:12 by Shazia Del Real [facility]) Alcohol intake: never Patient Tobacco Use Status: Never used Tobacco Physical Exam Vital Signs: Last Vital Signs Pulse 52 03/24/24 10:24 Resp 16 03/24/24 10:24 BP 102/68 03/24/24 10:24 Pulse Ox 98 03/24/24 10:24 Oxygen Delivery Method Room Air 03/24/24 10:24 BMI result Body Mass Index 20.7 Assessment & Plan Assessment & Plan (1) Spondylosis of lumbar spine: Code(s): M47.816 - Spondylosis without myelopathy or radiculopathy, lumbar region Category: Medical (2) Arthropathy of facet joint: Code(s): M47.819 - Spondylosis without myelopathy or radiculopathy, site unspecified Category: Medical Plan: Attempt at diagnostic medial branch block L3,L4 dorsal ramus L5 bilateral.? ? ?Informed consent was explained to the patient. All questions were explained and? answered.? The patient was taken inside the operating room where she was positioned prone on the operating table. Time-out was performed delineating correct site, side, the nature of the procedure, patient's allergy, . All operating room staff was participating in OR time-out procedure. ? ? The lower back was prepped with ChloraPrep and draped with sterile towels.? At this moment patient reported that he is being nauseous and will be not able to tolerate the procedure. He requested us to schedule his procedure. The patient was taking from the operating table to the recovery room, his vital signs were checked and patient was sent home. (3) Disc degeneration, lumbar: Code(s): M51.36 - Other intervertebral disc degeneration, lumbar region Category: Medical (4) Radiculopathy, lumbar region: Code(s): M54.16 - Radiculopathy, lumbar region Category: Medical (5) Chronic pain syndrome: Code(s): G89.4 - Chronic pain syndrome Category: Medical Plan Sacroiliac joint injection resulted only in pain aggravation. Good results of transforaminal L5-S1 epidural steroid injection. Bilateral. I will schedule him for the procedure. He was offered minimally invasive surgery with Dr. Benito however he refused. He had traumatic experience after cholecystectomy he was found aware under anesthesia. Physical therapy will be scheduled for him as well. See discussion as above. Orders: Orders FL guidance in treatment room Today M54.16 - Radiculopathy, lumbar region Coding Level of Care Code Procedure Only Diagnoses Spondylosis of lumbar spine M47.816 Arthropathy of facet joint M47.819 Disc degeneration, lumbar M51.36 Radiculopathy, lumbar region M54.16 Chronic pain syndrome G89.4
[2024-03-24 10:05] VITALS: BP 98/68; PULSE 63; RESP 16; O2SAT 96; BMI 20.7
[2024-03-24 10:24] VITALS: BP 102/68; PULSE 52; RESP 16; O2SAT 98
== END 2024-03-24 09:58 | disposition home or self-care (01) ==
LOC: HO.PMCPRC 09:39
PROVIDERS: PCP Physician Assistant; Visit Provider Anesthesiology
DX: M47.816 Spondylosis without myelopathy or radiculopathy, lumbar region (principal); M47.819 Spondylosis without myelopathy or radiculopathy, site unspecified; M51.36 Other intervertebral disc degeneration, lumbar region; M54.16 Radiculopathy, lumbar region; G89.4 Chronic pain syndrome
CPT/HCPCS: 99213

== ENCOUNTER → 2024-04-23 14:16 | Outpatient (BNVA) | payer OTHER, SELFPAY | PROVIDERS: PCP Physician Assistant; Visit Provider Anesthesiology ==

== ENCOUNTER 2025-02-15 11:22 | Outpatient (AMB) | payer OTHER, SELFPAY ==
--- NOTE | 2025-02-15 11:31 | MHC.OFFVIS ---
Vital Signs 02/15/25 11:32 Height 6 ft 1 in Weight 154 lb BMI 20.3 BP 124/78 Blood Pressure Location Lt brachial Position Sitting Pulse 52 Pulse Source Palpation Pulse Oximetry (%) 99 Oxygen Delivery Method Room Air Intake Visit Reasons: PROCEDURE DISCUSSION Home Care Giver Required: No Allergies cyclobenzaprine [From Flexeril] Allergy (Intermediate, Verified 02/15/25 11:33) Palpitations Medication List - Last Reconciled 02/15/25 by Rosa De León, BUSINESS CHANGE MANAGER aspirin 81 mg PO DAILY gabapentin 300 mg PO TID 30 days ibuprofen 800 mg PO Q8H PRN magnesium oxide 400 mg PO BEDTIME 30 days omeprazole 40 mg PO QAM riboflavin (vitamin B2) 400 mg PO DAILY 30 days HPI Comments Details: Juan is very pleasant 48 years old gentleman who is in my office to 6 months of absence. He is suffering from degenerative disc disease with significant disc protrusion at L5-S1 level. The disc compresses bilaterally both of his S1 nerve roots. His pains complain is mostly on the left however he has severe problems on the right as well. [facility] and he [facility] surgery however he has very traumatic experience after cholecystectomy and he refused to go for the surgery. He had awareness under anesthesia during cholecystectomy. With me he received transforaminal epidural steroid injection L5-S1 bilaterally performed around [facility] twice: 1st procedure was done in July of 2023 and 2nd was done in the July of 2024. Each time he received almost immediate and complete pain relief 0/10 for about 6 to 7 month after which his pain would start to come back and yet it would remain on lower numbers 2/10 or 3/10. He requests me today to schedule him for yet another procedure. Because of his prior history he wants to do it under minimal sedation. [facility] Surgical History History of carpal tunnel release Hx laparoscopic cholecystectomy Family History Mother Stroke Diabetes Past heart attack Father Stomach cancer COPD (chronic obstructive pulmonary disease) Diabetes Hypertension Sister Fibromyalgia Acute arthritis Bipolar 1 disorder Brother Bipolar 1 disorder GERD (gastroesophageal reflux disease) Kidney stones Sister Epilepsy Social History (Updated 10/03/22 @ 15:12 by Shazia Del Real CMA) Alcohol intake: never Patient Tobacco Use Status: Never used Tobacco Review of Systems Const All systems reviewed & are unremarkable except as noted in HPI and below ENT Reports Normal hearing present Neuro Reports Normal hearing present, Denies Abnormal speech present and Denies Sensory deficit (Neuro) Physical Exam Vital Signs: Last Vital Signs Pulse 52 02/15/25 11:32 BP 124/78 02/15/25 11:32 Pulse Ox 99 02/15/25 11:32 Oxygen Delivery Method Room Air 02/15/25 11:32 BMI result Body Mass Index 20.3 Const General: no acute distress Nutritional Appearance: thin and underweight Orientation/consciousness: patient oriented x3 Eyes General: appearance normal, both eyes and all related structures Pupils: Equal, round and reactive pupils present EOM: EOMs intact bilaterally Neck Neck: Yes full ROM Chest Chest palpation & inspection: normal inspection of the chest Resp Effort & Inspection: normal respiratory effort, able to speak in complete sentences, normal respiratory pattern, no audible wheezes and no cough Cardio Jugular venous distension: no JVD GI Inspection: Yes normal to inspection Back/Spine/Pelvis Other: He is able to stand on bilateral tiptoes and bilateral heels with no difficulty. He was able to lift 1st toe on both feet in separation of the rest of the toes without difficulty. However attempt to flex his hip or extend his knee on the left results in significant weakness. The weakness is more on the left compared to the right. Now he admits numbness in the lateral surface of the left foot. SLR is positive on the left and equivocal on the right. Lassegue test is also positive on the left. Michele test is positive on the left Tenderness on palpation in paraspinal spinal region in the lumbar spine. Severe tenderness on palpation in projection of the left sacroiliac joints. Flexing forward and flexing backwards does aggravate his pain however flexing backwards seem to aggravate his pain more than flexing forward. He is wearing a elastic abdominal belt. He denies pelvic organ dysfunction. Neuro General: patient oriented x3 and gait normal Cranial nerves: Yes CN's II-XII intact bilaterally, Yes Equal, round and reactive pupils present, Yes Normal hearing present and Yes Ability to bilaterally elevate shoulders present Speech: No Abnormal speech present Gait exam (Neuro): Normal gait present Motor exam (neuro): 5/5 motor strength present throughout Sensory Exam: No Sensory deficit (Neuro) Extrem General: No pedal edema Psych Speech and movement: Normal speech and movement present Affect: normal affect Attitude: cooperative Thought process: Normal thought process present Thought content: Normal thought content present Insight: Good insight present (Psych) Judgement: Good judgement present (Psych) Assessment & Plan Assessment & Plan (1) Spondylosis of lumbar spine: Code(s): M47.816 - Spondylosis without myelopathy or radiculopathy, lumbar region Category: Medical (2) Arthropathy of facet joint: Code(s): M47.819 - Spondylosis without myelopathy or radiculopathy, site unspecified Category: Medical (3) Disc degeneration, lumbar: Code(s): M51.36 - Other intervertebral disc degeneration, lumbar region Category: Medical (4) Radiculopathy, lumbar region: Code(s): M54.16 - Radiculopathy, lumbar region Category: Medical (5) Chronic pain syndrome: Code(s): G89.4 - Chronic pain syndrome Category: Medical Plan Sacroiliac joint injection resulted only in pain aggravation. Good results of transforaminal L5-S1 epidural steroid injection Bilateral. The procedure was performed around [facility]. He received it twice once in 2022 and the other time is 2023 with results dictated as above. I will schedule him for the procedure. He was offered minimally invasive surgery with Dr. Benito however he refused. He had traumatic experience after cholecystectomy he had an awareness under anesthesia. Because of his traumatic experience in operating room and with the injections he wants the procedure to be performed under minimal when sedation in the operating room. Coding Level of Care Code Est Pt Level 3 (19449) Diagnoses Spondylosis of lumbar spine M47.816 Arthropathy of facet joint M47.819 Disc degeneration, lumbar M51.36 Radiculopathy, lumbar region M54.16 Chronic pain syndrome G89.4
[2025-02-15 11:32] VITALS: BP 124/78; PULSE 52; O2SAT 99; BMI 20.3
--- OUTSIDE RECORDS SUMMARY | 2025-02-15 12:14 | XMS_ITS | Clinical Summary ---
Author Organization Patient Business Ser [facility] Address [address] [place] [address] Care Team Providers Care Slate Mixer Name Role Phone Ratna Arriaga MD Primary Care Provider Allergies Active Allergy Reactions Criticality Noted Date Comments Cyclobenzaprine Hcl Other 10/23/2013 palpatations Medications omeprazole (PriLOSEC) [address] capsule Take 1 Capsule by mouth every morning (before breakfast). 4 Active diclofenac (VOLTAREN) 1 % topical gel Apply 1 g topically 3 times daily. 4 Active ibuprofen (ADVIL,MOTRIN) 800 mg tablet Take 1 Tablet by mouth 3 times daily as needed for Pain. 4 Active lidocaine (LIDODERM) 5 % patch APPLY 1 PATCH DAILY FOR 12 HOURS AND REMOVE FOR 12 HOURS 4 Active gabapentin (NEURONTIN) 300 mg capsule 2 times daily. 3 Active Active Problems Problem Noted Date Diagnosed Date Elevated PSA 03/31/2023 Overview (08/25/2024): Under the setting of BPH, following with urology Hypothyroidism 01/05/2022 Mixed hyperlipidemia 01/05/2022 Overview (08/25/2024): ASCVD score 2.9% Chronic nonintractable headache 12/03/2018 Closed fracture of cervical vertebra (CMS/HCC V24, CMS/HCC V28) 02/08/2017 Irritable bowel syndrome wit h both constipation and diarrhea 02/08/2017 Chronic intractable headache 02/08/2017 DDD (degenerative disc disease), lumbar 11/09/19 17 Esophageal reflux 05/27/2015 H. pylori infection 11/06/2013 Overview (08/25/2024): S/p eradication treatment, omeprazole/clarithromycin/amox 11/06/13 Immunizations Name Administration Dates Next Due Influenza, Unspecified 08/12/2014 PPD Test 01/10/2015 Tdap Tetanus diptheria acell ular pertussis (Boostrix; Adacel) 7yo and older 01/10/2015 Surgical History Surgery Date Site/Laterality Comments CHOLECYSTECTOMY 2006 PROCEDURE: LAPAROSCOPY, CHOLECYSTECTOMY Medical History Medical History Date Comments Prostatitis DX:Prostatitis Nephrolithiasis DX:Nephrolithias is Chronic back pain DX:Chronic karolina k pain Family History Medical History Relation Name Comments Mental illness Brother 1 bipolar, gerd Other cancer Father stomach ca, [employer] D Stroke Mother age 80, had pac emaker Other: fibromyalgia Sister 1 arthriti s, bipolar Relation Name Status Comments Brother 1 Brother 2 Father Mother Sister 1 Sister 2 Social History Tobacco Use Types Packs/Day Years Used Date Smoking Tobacco: Never Smokeless Tobacco: Never Alcohol Use Standard Drinks/Week Comments No 0 (1 standard drink = 0.6 oz pur e alcohol) Sex and Gender Information Value Date Recorded Sex Assigned at Not on file Legal Sex Male 2:36 PM EDT Gender Identity Not on file Sexual Orientation Not on file Obstetrics History Last Filed Vital Signs Vital Sign Reading Time Taken Comments Blood Pressure 108/60 10/05/2024 2:23 PM EST Pulse 52 10/05/2024 2:23 PM EST Temperature 36.5 ??C (97.7 ??F) 10/05/2024 2:23 PM ES T Respiratory Rate - - Oxygen Saturation - - Inhaled Oxygen Concentration - - Weight 71.7 kg (158 lb) 10/05/2024 2:23 PM EST Height 185.4 cm (6' 1 ) 10/05/2024 2:23 PM EST Body Mass Index 20.85 10/05/2024 2:23 PM EST Plan of Treatment Upcoming Encounters Date Type Department Care Team (Late st Contact Info) Description 02/16/2025 2:00 PM EDT Office Visit Adult Medicine [address] [phone] Ricardo Myles PA [facility] [place] [facility] [place] [address] Health Maintenance Due Date Last Done Comments Hepatitis B Vaccines (1 of 3 - 19+ 3-dose series) 1993 Colorectal Cancer Screening: Colonoscopy 03/01/2022 Depression Screening 03/01/2022 Social Influencers of Health Screening 03/01/2022 COVID-19 Vaccine (1 - 2023-2 5 season) 2024 Pneumococcal Vaccine: 50+ Ye ars (1 of 1 - PCV) 2024 Zoster Vaccines (1 of 2) 2024 DTaP,Tdap,and Td Vaccines (2 - Td or Tdap) 01/10/2025 01/10/2015 Influenza Vaccine (Season Ended) 2025 08/12/20 14 Cholesterol Screening (Lipid Panel) 01/20/2029 01/21/2024 HIV Screening Completed 07/17/2018 Hepatitis C Screening Completed 07/17/2018 HIB Vaccines Aged Out No longer eligi ble based on patient's age to complete this topic HPV Vaccines Aged Out No longer eligi ble based on patient's age to complete this topic Hepatitis A Vaccines Aged Out No long er eligible based on patient's age to complete this topic IPV Vaccines Aged Out No longer eligi ble based on patient's age to complete this topic MMR Vaccines Aged Out No longer eligi ble based on patient's age to complete this topic Meningococcal ACWY Vaccine Aged Out N o longer eligible based on patient's age to complete this topic Meningococcal B Vaccine Aged Out No l onger eligible based on patient's age to complete this topic Pneumococcal Vaccine: Pediat rics (0 to 5 Years) and At-Risk Patients (6 to 64 Years) Aged Out No longer eligi ble based on patient's age to complete this topic RSV Immunization Patients Un angelito 20 months Aged Out No longer eligible b ased on patient's age to complete this topic Varicella Vaccines Aged Out No longer eligible based on patient's age to complete this topic Procedures Procedure Name Priority Date/Time Associated Diagnosis Comments LIPID PANEL Routine 01/21/2024 HEPATITIS C SCREENING Routine 07/17/2018 HIV SCREENING Routine 07/17/2018 from Last 3 Months or Most Recently Relevant to Health Maintenance Results * (ABNORMAL) Lipid panel (01/21/2024) [facility] LDL/HDL Ratio 5(A) 0 - 4 Triglycerides 229(A) 0 - 150 mg/dL Cholesterol 207(A) 0 - 200 mg/dL HDL 42 >=40 mg/dL LDL Cholesterol 120(A) 0 - 100 mg/dL Blood Venous blood specimen / Unknown [facility] Provider LAB BLOOD ORDERABLES Shania l Result * HIV Screening (07/17/2018) [facility] HIV Screening abstracted [facility] Provider HEALTH MAINTENANCE Final Result * Hepatitis C Screening (07/17/2018) [facility] Hepatitis C Screening abstracted [facility] Provider HEALTH MAINTENANCE Final Result from Last 3 Months or Most Recently Relevant to Health [place] [phone] [facility] Care Teams Slate Mixer Relationship Specialty Start Date End Date Ratna Arriaga MD PCP - General 12/20/23
== END 2025-02-15 11:39 | disposition home or self-care (01) ==
LOC: HO.PMC 11:23
PROVIDERS: PCP Family Medicine; Visit Provider Anesthesiology
DX: M47.816 Spondylosis without myelopathy or radiculopathy, lumbar region (principal); M47.819 Spondylosis without myelopathy or radiculopathy, site unspecified; M51.369 Other intervertebral disc degeneration, lumbar region without mention of lumbar back pain or lower extremity pain; M54.16 Radiculopathy, lumbar region; G89.4 Chronic pain syndrome
CPT/HCPCS: 99213

== ENCOUNTER → 2025-02-15 11:22 | Outpatient (BNVA) | payer OTHER, SELFPAY | PROVIDERS: PCP Family Medicine; Visit Provider Anesthesiology | DX: M47.816 Spondylosis without myelopathy or radiculopathy, lumbar region (principal); M47.819 Spondylosis without myelopathy or radiculopathy, site unspecified; M51.360 Other intervertebral disc degeneration, lumbar region with discogenic back pain only; M54.16 Radiculopathy, lumbar region; G89.4 Chronic pain syndrome | CPT/HCPCS: 99212 ==